=== PATIENT | female | born 1960 | race Caucasian/White ===

== ENCOUNTER 2017-04-08 17:38 | Emergency (ER) | payer OTHER ==
[~2017-04-08] VITALS: Ht 170.2 cm; Wt 109.0 kg
[~2017-04-08 17:38] MED LIST: DOXY100C PO; LISI-660 PO; MIRT30 PO; QUET25TA PO; SIMV-260 PO
[2017-04-08] MEDS ORDERED: ALPR0.255 PO (18:14)
[2017-04-08] MEDS ORDERED: TYL3LL PO (18:14)
[2017-04-08] MEDS ORDERED: VIST50 PO (18:14)
[2017-04-08] MEDS ORDERED: IBUP-1681 PO (18:14)
[2017-04-08 19:27] LABS: BASOPHILS % (AUTO) 0.4 % (0.0-2.0); EOSINOPHILS % (AUTO) 2.2 % (1.0-6.0); HEMATOCRIT 43.1 % (36-46); HEMOGLOBIN 13.9 g/dL (12.0-16.0); LYMPHOCYTES # (AUTO) 3.9 K/uL (1.0-4.8); LYMPHOCYTES % (AUTO) 41.1 % (22.0-44.0); MEAN CORPUSCULAR HEMOGLOBIN 28.5 pg (26.0-34.0); MEAN CORPUSCULAR HGB CONC 32.3 G/dL (31.0-37.0); MEAN CORPUSCULAR VOLUME 88 fL (80-100); MONOCYTES # (AUTO) 0.6 K/uL (0.1-1.0); MONOCYTES % (AUTO) 6.7 % (2.0-9.0); NEUTROPHILS # (AUTO) 4.7 K/uL (1.8-7.7); NEUTROPHILS % (AUTO) 49.6 % (40.0-70.0); PLATELET COUNT (AUTO) 357 K/uL (150-450); RED BLOOD CELL COUNT(AUTO) 4.89 MIL/uL (4.00-5.20); RED CELL DISTRIBUTION WIDTH 13.2 % (11.5-14.5); WHITE BLOOD COUNT (AUTO) 9.5 K/uL (4.5-11.0)
[2017-04-08 19:44] LABS: ANION GAP 7 mmol/L (8-16); CARBON DIOXIDE 28 mmol/L (22-29); CHLORIDE 105 mmol/L (98-107); CREATININE 1.11 mg/dL (0.60-1.30); GLOMERULAR FILTR. RATE CALC 51 mL/min (>60); POTASSIUM 4.5 mmol/L (3.5-5.1); SODIUM SERUM 140 mmol/L (136-145); UREA NITROGEN, BLOOD 18 mg/dL (7-18)
[2017-04-08 19:49] LABS: ALANINE AMINOTRANSFERASE 27 U/L (12-78); ALBUMIN 3.6 g/dL (3.4-5.0); ASPARTATE AMINOTRANSFERASE 18 U/L (15-37); BILIRUBIN,TOTAL 0.2 mg/dL (0.1-1.0); TOTAL PROTEIN, SERUM 7.3 g/dL (6.4-8.2)
[2017-04-08] MEDS ORDERED: IBUPROFEN 600 MG TABLET PO ONE (20:15)
[2017-04-08] MEDS ORDERED: ALPRAZolam 0.25 MG TABLET PO ONE (20:15)
[2017-04-08 21:57] VITALS: BP 117/72
== END 2017-04-08 21:58 | disposition home or self-care (01) ==
LOC: EMS 17:41
DX: R45.851 Suicidal ideations (principal); F41.9 Anxiety disorder, unspecified; M25.562 Pain in left knee; I10 Essential (primary) hypertension; F32.9 Major depressive disorder, single episode, unspecified; E78.00 Pure hypercholesterolemia, unspecified; E66.01 Morbid (severe) obesity due to excess calories; F11.10 Opioid abuse, uncomplicated; Z88.8 Allergy status to other drugs, medicaments and biological substances
CPT/HCPCS: 36415; 80053; 85025; 99284; 99406; G0480

== ENCOUNTER 2017-04-21 14:38 | Inpatient (IN) | payer MEDICAID, OTHER ==
[~2017-04-21] VITALS: Ht 170.2 cm; Wt 110.1 kg
[~2017-04-21 14:38] MED LIST changes: +ALPR0.255 PO; -DOXY100C PO; +IBUP-1681 PO; -LISI-660 PO; -MIRT30 PO; -QUET25TA PO; -SIMV-260 PO; +TYL3LL PO; +VIST50 PO
[2017-04-21] MEDS ORDERED: ASPIRIN 81 MG CHEWABLE TABLET PO ONE (15:00)
[2017-04-21] MEDS ORDERED: ACETAMINOPHEN 500 MG TABLET PO ONE (15:00)
[2017-04-21 15:16] LABS: BASOPHILS % (AUTO) 0.6 % (0.0-2.0); EOSINOPHILS % (AUTO) 1.4 % (1.0-6.0); HEMATOCRIT 38.4 % (36-46); HEMOGLOBIN 12.1 g/dL (12.0-16.0); LYMPHOCYTES # (AUTO) 3.4 K/uL (1.0-4.8); MEAN CORPUSCULAR HEMOGLOBIN 28.1 pg (26.0-34.0); MEAN CORPUSCULAR HGB CONC 31.6 G/dL (31.0-37.0); MEAN CORPUSCULAR VOLUME 89 fL (80-100); MONOCYTES # (AUTO) 0.6 K/uL (0.1-1.0); MONOCYTES % (AUTO) 7.1 % (2.0-9.0); NEUTROPHILS % (AUTO) 48.9 % (40.0-70.0); PLATELET COUNT (AUTO) 435 K/uL (150-450); RED BLOOD CELL COUNT(AUTO) 4.32 MIL/uL (4.00-5.20); WHITE BLOOD COUNT (AUTO) 8.1 K/uL (4.5-11.0)
[2017-04-21 15:22] LABS: ANION GAP 9 mmol/L (8-16); CALCIUM, TOTAL 8.7 mg/dL (8.8-10.5); CARBON DIOXIDE 26 mmol/L (22-29); CHLORIDE 102 mmol/L (98-107); CREATININE 0.81 mg/dL (0.60-1.30); GLOMERULAR FILTR. RATE CALC > 60 mL/min (>60); POTASSIUM 3.3 mmol/L (3.5-5.1); SODIUM SERUM 137 mmol/L (136-145); UREA NITROGEN, BLOOD 8 mg/dL (7-18)
[2017-04-21 15:43] LABS: ALANINE AMINOTRANSFERASE 29 U/L (12-78); ALBUMIN 3.3 g/dL (3.4-5.0); ASPARTATE AMINOTRANSFERASE 21 U/L (15-37); BILIRUBIN,TOTAL 0.4 mg/dL (0.1-1.0); CREATINE KINASE, TOTAL 65 U/L (26-192); TOTAL PROTEIN, SERUM 6.5 g/dL (6.4-8.2)
[2017-04-21 15:51] LABS: B-TYPE NATRIURETIC PEPTIDE 63 pg/mL (0-100)
[2017-04-21 16:20] LABS: GLUCOSE, URINE (UA) NEGATIVE (NEGATIVE); KETONES,URINE 40 mg/dL (NEGATIVE); LEUKOCYTE ESTERASE ,URINE NEGATIVE (NEGATIVE); OCCULT BLOOD,URINE NEGATIVE (NEGATIVE); PROTEIN,URINE POS 1+ (NEGATIVE)
[2017-04-21 16:21] LABS: ADD UA MICROSCOPIC YES
[2017-04-21 16:22] LABS: APPEARANCE,URINE SLIGHTLY CLOUDY (CLEAR)
[2017-04-21 16:33] LABS: CALCIUM OXALATE CRYSTALS,UR Few /LPF (None Seen); RBC,URINE 0-2 /HPF (0-2); SQUAMOUS EPITHELIAL CELL,UR Many /LPF (None Seen); WBC,URINE 0-2 /HPF (0-5)
[2017-04-21] MEDS ORDERED: LORazepam 1 MG TABLET PO ONE (17:15)
[2017-04-21 19:10] VITALS: BP 124/74
[2017-04-21] MEDS ORDERED: POTASSIUM CHLORIDE 20 MEQ ER TABLET PO ONE (19:45)
[2017-04-21] MEDS ORDERED: IBUPROFEN 600 MG TABLET PO PRN (19:45)
[2017-04-21] MEDS: QUEtiapine FUMARATE 25 MG TABLET PO SCH (20:21)
[2017-04-21] MEDS: MIRTAZAPINE 30 MG TABLET PO SCH (20:21)
[2017-04-21] MEDS: ZOLPIDEM TARTRATE 10 MG TABLET PO PRN (21:03)
[2017-04-22] MEDS ORDERED: PETROLATUM,WHITE 71 GM JELLY TP PRN (08:00)
[2017-04-22] MEDS ORDERED: BACITRACIN 28.4 GM OINTMENT TP PRN (08:00)
[2017-04-22] MEDS ORDERED: BENZOCAINE/MENTHOL LOZENGE MM PRN (08:00)
[2017-04-22] MEDS ORDERED: LOPERAMIDE HCL 2 MG CAPSULE PO PRN (08:00)
[2017-04-22] MEDS ORDERED: ONDANSETRON HCL 4 MG TABLET PO PRN (08:00)
[2017-04-22] MEDS ORDERED: MAGNESIUM HYDROXIDE SUSPENSION 30 ML UDCUP PO PRN (08:00)
[2017-04-22] MEDS ORDERED: MAG HYDROX/AL HYDROX/SIMETH ES 30 ML SUSPENSION UDCUP PO PRN (08:00)
[2017-04-22] MEDS ORDERED: CloNIDine HCL 0.1 MG TABLET PO PRN (08:00)
[2017-04-22 08:40] LABS: CHOL/HDL RATIO 4.8 (3.9-5.7); POTASSIUM 3.8 mmol/L (3.5-5.1)
[2017-04-22] MEDS: CHOLECALCIFEROL (VIT D3) 1,000 UNITS TABLET PO SCH (08:44)
[2017-04-22] MEDS ORDERED: FLUoxetine HCL 20 MG CAPSULE PO ONE (10:30)
[2017-04-22] MEDS ORDERED: ACETAMINOPHEN 325 MG TABLET PO PRN (10:45)
[2017-04-22] MEDS: FLUoxetine HCL 20 MG CAPSULE PO SCH (10:50)
[2017-04-22 16:24] VITALS: BP 142/72
[2017-04-22] MEDS: MIRTAZAPINE 30 MG TABLET PO SCH (20:19)
[2017-04-22] MEDS: QUEtiapine FUMARATE 25 MG TABLET PO SCH (20:19)
[2017-04-22] MEDS: ZOLPIDEM TARTRATE 10 MG TABLET PO PRN (21:02)
[2017-04-23 01:47] VITALS: BP 137/71
[2017-04-23] MEDS: CHOLECALCIFEROL (VIT D3) 1,000 UNITS TABLET PO SCH (08:36)
[2017-04-23] MEDS: FLUoxetine HCL 20 MG CAPSULE PO SCH (08:36)
[2017-04-23 09:00] VITALS: BP 108/61
[2017-04-23 16:00] VITALS: BP 120/73
[2017-04-23] MEDS: QUEtiapine FUMARATE 25 MG TABLET PO SCH (20:47)
[2017-04-23] MEDS: MIRTAZAPINE 30 MG TABLET PO SCH (20:47)
[2017-04-23] MEDS: ZOLPIDEM TARTRATE 10 MG TABLET PO PRN (21:28)
[2017-04-24] MEDS: FLUoxetine HCL 20 MG CAPSULE PO SCH (08:38)
[2017-04-24] MEDS: CHOLECALCIFEROL (VIT D3) 1,000 UNITS TABLET PO SCH (08:38)
[2017-04-24 09:04] VITALS: BP 123/60
[2017-04-24 16:00] VITALS: BP 128/74
[2017-04-24] MEDS: ACETAMINOPHEN 325 MG TABLET PO PRN (17:00)
[2017-04-24] MEDS: MIRTAZAPINE 30 MG TABLET PO SCH (20:48)
[2017-04-24] MEDS: QUEtiapine FUMARATE 25 MG TABLET PO SCH (20:49)
[2017-04-24] MEDS: ZOLPIDEM TARTRATE 10 MG TABLET PO PRN (21:16)
[2017-04-24] MEDS: LORazepam 2 MG TABLET PO PRN (21:43)
[2017-04-25] MEDS: CHOLECALCIFEROL (VIT D3) 1,000 UNITS TABLET PO SCH (08:51)
[2017-04-25] MEDS: FLUoxetine HCL 20 MG CAPSULE PO SCH (08:51)
[2017-04-25] MEDS: IBUPROFEN 600 MG TABLET PO PRN (10:01)
[2017-04-25 16:00] VITALS: BP 117/71
[2017-04-25] MEDS: QUEtiapine FUMARATE 25 MG TABLET PO SCH (20:34)
[2017-04-25] MEDS: MIRTAZAPINE 30 MG TABLET PO SCH (20:34)
[2017-04-26] MEDS: CHOLECALCIFEROL (VIT D3) 1,000 UNITS TABLET PO SCH (08:23)
[2017-04-26] MEDS: FLUoxetine HCL 20 MG CAPSULE PO SCH (08:23)
[2017-04-26 08:34] VITALS: BP 104/60
[2017-04-26] MEDS: IBUPROFEN 600 MG TABLET PO PRN ×2 (08:36→20:06)
[2017-04-26 16:28] VITALS: BP 123/72
[2017-04-26] MEDS: QUEtiapine FUMARATE 25 MG TABLET PO SCH (20:05)
[2017-04-26] MEDS: ZOLPIDEM TARTRATE 10 MG TABLET PO PRN (20:06)
[2017-04-26] MEDS: MIRTAZAPINE 30 MG TABLET PO SCH (20:06)
[2017-04-26] MEDS: LORazepam 2 MG TABLET PO PRN (22:09)
[2017-04-27 00:20] VITALS: BP 126/78
[2017-04-27] MEDS: HALOPERIDOL 5 MG TABLET PO PRN ×3 (00:21→21:35)
[2017-04-27] MEDS: CHOLECALCIFEROL (VIT D3) 1,000 UNITS TABLET PO SCH (08:09)
[2017-04-27] MEDS: FLUoxetine HCL 20 MG CAPSULE PO SCH (08:09)
[2017-04-27 08:21] VITALS: BP 115/63
[2017-04-27 16:33] VITALS: BP 138/81
[2017-04-27] MEDS: LORazepam 2 MG TABLET PO PRN ×2 (17:06→21:35)
[2017-04-27] MEDS: MIRTAZAPINE 30 MG TABLET PO SCH (20:35)
[2017-04-27] MEDS: QUEtiapine FUMARATE 25 MG TABLET PO SCH (20:35)
[2017-04-27] MEDS: ZOLPIDEM TARTRATE 10 MG TABLET PO PRN (20:54)
[2017-04-28 08:02] VITALS: BP 104/74
[2017-04-28] MEDS: FLUoxetine HCL 20 MG CAPSULE PO SCH (08:47)
[2017-04-28] MEDS: CHOLECALCIFEROL (VIT D3) 1,000 UNITS TABLET PO SCH (08:47)
[2017-04-28] MEDS: LORazepam 2 MG TABLET PO PRN (08:51)
[2017-04-28 16:47] VITALS: BP 116/77
[2017-04-28] MEDS: IBUPROFEN 600 MG TABLET PO PRN (20:05)
[2017-04-28] MEDS: QUEtiapine FUMARATE 25 MG TABLET PO SCH (20:05)
[2017-04-28] MEDS: MIRTAZAPINE 30 MG TABLET PO SCH (20:05)
[2017-04-29 07:15] VITALS: BP 110/76
[2017-04-29] MEDS: FLUoxetine HCL 20 MG CAPSULE PO SCH (08:26)
[2017-04-29] MEDS: CHOLECALCIFEROL (VIT D3) 1,000 UNITS TABLET PO SCH (08:27)
[2017-04-29 08:55] VITALS: BP 116/65
[2017-04-29] MEDS: LORazepam 2 MG TABLET PO PRN ×2 (09:12→16:53)
[2017-04-29] MEDS: HALOPERIDOL 5 MG TABLET PO PRN ×3 (09:12→20:58)
[2017-04-29 16:17] VITALS: BP 132/96
[2017-04-29] MEDS: ZOLPIDEM TARTRATE 10 MG TABLET PO PRN (20:41)
[2017-04-29] MEDS: MIRTAZAPINE 30 MG TABLET PO SCH (20:41)
[2017-04-29] MEDS: IBUPROFEN 600 MG TABLET PO PRN (20:42)
[2017-04-29] MEDS: QUEtiapine FUMARATE 25 MG TABLET PO SCH (20:42)
[2017-04-30 06:15] VITALS: BP 125/76
[2017-04-30 08:24] VITALS: BP 111/62
[2017-04-30] MEDS: FLUoxetine HCL 20 MG CAPSULE PO SCH (10:09)
[2017-04-30] MEDS: CHOLECALCIFEROL (VIT D3) 1,000 UNITS TABLET PO SCH (10:09)
[2017-04-30 16:00] VITALS: BP 110/80
[2017-04-30] MEDS: IBUPROFEN 600 MG TABLET PO PRN (17:53)
[2017-04-30] MEDS: MIRTAZAPINE 30 MG TABLET PO SCH (20:36)
[2017-04-30] MEDS: QUEtiapine FUMARATE 25 MG TABLET PO SCH (20:36)
[2017-04-30] MEDS: ZOLPIDEM TARTRATE 10 MG TABLET PO PRN (21:07)
[2017-04-30] MEDS: LORazepam 2 MG TABLET PO PRN (21:40)
[2017-04-30] MEDS: HALOPERIDOL 5 MG TABLET PO PRN (22:17)
[2017-05-01 06:36] VITALS: BP 105/64
[2017-05-01] MEDS: FLUoxetine HCL 20 MG CAPSULE PO SCH (08:34)
[2017-05-01] MEDS: CHOLECALCIFEROL (VIT D3) 1,000 UNITS TABLET PO SCH (08:34)
[2017-05-01 09:01] VITALS: BP 118/82
[2017-05-01 12:48] VITALS: BP 116/74
[2017-05-01] MEDS: IBUPROFEN 600 MG TABLET PO PRN (12:48)
[2017-05-01] MEDS: LORazepam 2 MG TABLET PO PRN ×2 (12:48→20:40)
[2017-05-01 16:00] VITALS: BP 114/67
[2017-05-01] MEDS: MIRTAZAPINE 30 MG TABLET PO SCH (20:40)
[2017-05-01] MEDS: QUEtiapine FUMARATE 25 MG TABLET PO SCH (20:40)
[2017-05-01] MEDS: HALOPERIDOL 5 MG TABLET PO PRN (20:40)
[2017-05-01] MEDS: ZOLPIDEM TARTRATE 10 MG TABLET PO PRN (21:32)
[2017-05-02 06:54] VITALS: BP 122/68
[2017-05-02 08:17] VITALS: BP 111/64
[2017-05-02] MEDS: FLUoxetine HCL 20 MG CAPSULE PO SCH (08:33)
[2017-05-02] MEDS: CHOLECALCIFEROL (VIT D3) 1,000 UNITS TABLET PO SCH (08:34)
[2017-05-02 16:21] VITALS: BP 112/62
[2017-05-02] MEDS: ACETAMINOPHEN 325 MG TABLET PO PRN (18:11)
[2017-05-02] MEDS: MIRTAZAPINE 30 MG TABLET PO SCH (20:58)
[2017-05-02] MEDS: QUEtiapine FUMARATE 25 MG TABLET PO SCH (20:58)
[2017-05-02] MEDS: HALOPERIDOL 5 MG TABLET PO PRN (20:58)
[2017-05-02] MEDS: ZOLPIDEM TARTRATE 10 MG TABLET PO PRN (21:00)
[2017-05-03 06:13] VITALS: BP 116/70
[2017-05-03 08:21] VITALS: BP 101/58
[2017-05-03] MEDS: CHOLECALCIFEROL (VIT D3) 1,000 UNITS TABLET PO SCH (08:32)
[2017-05-03] MEDS: FLUoxetine HCL 20 MG CAPSULE PO SCH (08:32)
[2017-05-03 16:17] VITALS: BP 112/63
[2017-05-03] MEDS: MIRTAZAPINE 30 MG TABLET PO SCH (21:09)
[2017-05-03] MEDS: QUEtiapine FUMARATE 25 MG TABLET PO SCH (21:09)
[2017-05-03] MEDS: ZOLPIDEM TARTRATE 10 MG TABLET PO PRN (21:09)
[2017-05-03] MEDS: IBUPROFEN 600 MG TABLET PO PRN (21:22)
[2017-05-04 00:01] VITALS: BP 117/74
[2017-05-04] MEDS: LORazepam 2 MG TABLET PO PRN ×4 (00:01→21:23)
[2017-05-04 08:43] VITALS: BP 107/54
[2017-05-04] MEDS: FLUoxetine HCL 20 MG CAPSULE PO SCH (09:03)
[2017-05-04] MEDS: CHOLECALCIFEROL (VIT D3) 1,000 UNITS TABLET PO SCH (09:03)
[2017-05-04] MEDS ORDERED: QUET25TA PO (10:23)
[2017-05-04] MEDS ORDERED: FLUO-191 PO (10:23)
[2017-05-04] MEDS ORDERED: VITAD1000 PO (10:23)
[2017-05-04] MEDS ORDERED: MIRT30 PO (10:23)
[2017-05-04 16:05] VITALS: BP 127/79
[2017-05-04] MEDS: HALOPERIDOL 5 MG TABLET PO PRN (21:00)
[2017-05-04] MEDS ORDERED: QUEtiapine FUMARATE 100 MG TABLET PO SCH (21:00)
[2017-05-04] MEDS: ZOLPIDEM TARTRATE 10 MG TABLET PO PRN (21:00)
[2017-05-04] MEDS ORDERED: MIRTAZAPINE 30 MG TABLET PO SCH (21:00)
[2017-05-04] MEDS ORDERED: DiphenhydrAMINE HCL 25 MG CAPSULE PO SCH (22:00)
[2017-05-05 06:24] VITALS: BP 127/73
[2017-05-05] MEDS: CHOLECALCIFEROL (VIT D3) 1,000 UNITS TABLET PO SCH (08:38)
[2017-05-05 08:56] VITALS: BP 113/76
[2017-05-05] MEDS ORDERED: FLUoxetine HCL 20 MG CAPSULE PO SCH (09:00)
[2017-05-05] MEDS: LORazepam 2 MG TABLET PO PRN (11:13)
== END 2017-05-05 17:45 | disposition home or self-care (01) | DRG 751 ==
LOC: EMS 14:39 → B3A 17:49 → B2S 05-03 11:48
DX: F33.2 Major depressive disorder, recurrent severe without psychotic features (principal); R45.851 Suicidal ideations; E55.9 Vitamin D deficiency, unspecified; I10 Essential (primary) hypertension; E78.5 Hyperlipidemia, unspecified; F12.90 Cannabis use, unspecified, uncomplicated; K59.00 Constipation, unspecified; E87.6 Hypokalemia; G47.00 Insomnia, unspecified; E78.00 Pure hypercholesterolemia, unspecified; M25.561 Pain in right knee; E66.01 Morbid (severe) obesity due to excess calories; Z79.899 Other long term (current) drug therapy; Z90.81 Acquired absence of spleen; Z56.0 Unemployment, unspecified; Z71.51 Drug abuse counseling and surveillance of drug abuser; Z88.8 Allergy status to other drugs, medicaments and biological substances; Z68.38 Body mass index [BMI] 38.0-38.9, adult; Z87.01 Personal history of pneumonia (recurrent); Z91.5 Personal history of self-harm; Z79.82 Long term (current) use of aspirin
CPT/HCPCS: 72040; 84132; 93005; 99285

== ENCOUNTER 2017-08-23 15:29 | Inpatient (IN) | payer MEDICAID, OTHER ==
[~2017-08-23] VITALS: Ht 170.2 cm; Wt 110.0 kg
[~2017-08-23 15:29] MED LIST changes: -ALPR0.255 PO; +FLUO-191 PO; -IBUP-1681 PO; +MIRT30 PO; +QUET25TA PO; -TYL3LL PO; -VIST50 PO; +VITAD1000 PO
[2017-08-23 16:11] LABS: BASOPHILS % (AUTO) 0.8 % (0.0-2.0); EOSINOPHILS % (AUTO) 1.9 % (1.0-6.0); HEMATOCRIT 43.9 % (36-46); HEMOGLOBIN 14.8 g/dL (12.0-16.0); LYMPHOCYTES # (AUTO) 2.8 K/uL (1.0-4.8); LYMPHOCYTES % (AUTO) 26.8 % (22.0-44.0); MEAN CORPUSCULAR HEMOGLOBIN 30.4 pg (26.0-34.0); MEAN CORPUSCULAR HGB CONC 33.9 G/dL (31.0-37.0); MEAN CORPUSCULAR VOLUME 90 fL (80-100); MONOCYTES # (AUTO) 0.6 K/uL (0.1-1.0); MONOCYTES % (AUTO) 6.2 % (2.0-9.0); NEUTROPHILS # (AUTO) 6.7 K/uL (1.8-7.7); NEUTROPHILS % (AUTO) 64.3 % (40.0-70.0); PLATELET COUNT (AUTO) 397 K/uL (150-450); RED BLOOD CELL COUNT(AUTO) 4.88 MIL/uL (4.00-5.20); RED CELL DISTRIBUTION WIDTH 14.2 % (11.5-14.5); WHITE BLOOD COUNT (AUTO) 10.5 K/uL (4.5-11.0)
[2017-08-23 17:15] LABS: ANION GAP 9 mmol/L (8-16); CALCIUM, TOTAL 9.3 mg/dL (8.8-10.5); CARBON DIOXIDE 26 mmol/L (22-29); CHLORIDE 101 mmol/L (98-107); CREATININE 0.84 mg/dL (0.60-1.30); GLOMERULAR FILTR. RATE CALC > 60 mL/min (>60); POTASSIUM 4.4 mmol/L (3.5-5.1); SODIUM SERUM 136 mmol/L (136-145); UREA NITROGEN, BLOOD 10 mg/dL (7-18)
[2017-08-23 17:21] LABS: ALANINE AMINOTRANSFERASE 28 U/L (12-78); ALBUMIN 3.4 g/dL (3.4-5.0); ASPARTATE AMINOTRANSFERASE 18 U/L (15-37); BILIRUBIN,TOTAL 0.5 mg/dL (0.1-1.0); TOTAL PROTEIN, SERUM 7.5 g/dL (6.4-8.2)
[2017-08-23] MEDS ORDERED: ONDANSETRON HCL 4 MG/2 ML VIAL IM ONE (17:30)
[2017-08-23] MEDS ORDERED: MORPHINE SULFATE 4 MG/ML SYRINGE IM ONE (17:30)
[2017-08-23] MEDS ORDERED: LORazepam 2 MG TABLET PO ONE (20:00)
[2017-08-23 21:01] LABS: CHOL/HDL RATIO 4.9 (3.9-5.7)
[2017-08-23 21:40] VITALS: BP 123/76
[2017-08-23] MEDS ORDERED: ACETAMINOPHEN 325 MG TABLET PO PRN (21:45)
[2017-08-23] MEDS: ZOLPIDEM TARTRATE 10 MG TABLET PO PRN (21:57)
[2017-08-23] MEDS ORDERED: INFLUENZA VIRUS VACCINE QVS 2017-18 (3YR+)/PF 60 MCG/0.5 ML SYRINGE IM ONE (22:00)
[2017-08-24] MEDS: HALOPERIDOL 5 MG TABLET PO PRN ×2 (00:11→18:17)
[2017-08-24] MEDS: LORazepam 2 MG TABLET PO PRN ×3 (00:11→18:17)
[2017-08-24 00:42] VITALS: BP 131/75
[2017-08-24] MEDS ORDERED: MAGNESIUM HYDROXIDE SUSPENSION 30 ML UDCUP PO PRN (07:30)
[2017-08-24] MEDS ORDERED: BENZOCAINE/MENTHOL LOZENGE [8 LOZENGES/PACKET] MM PRN (07:30)
[2017-08-24] MEDS ORDERED: MAG HYDROX/AL HYDROX/SIMETH ES 30 ML SUSPENSION UDCUP PO PRN (07:30)
[2017-08-24] MEDS ORDERED: LOPERAMIDE HCL 2 MG CAPSULE PO PRN (07:30)
[2017-08-24] MEDS ORDERED: ONDANSETRON HCL 4 MG TABLET PO PRN (07:30)
[2017-08-24] MEDS ORDERED: CloNIDine HCL 0.1 MG TABLET PO PRN (07:30)
[2017-08-24] MEDS ORDERED: PETROLATUM,WHITE 71 GM JELLY TP PRN (07:30)
[2017-08-24] MEDS ORDERED: BACITRACIN 28.4 GM OINTMENT TP PRN (07:30)
[2017-08-24 08:01] VITALS: BP 127/77
[2017-08-24] MEDS: NICOTINE 21 MG/24 HOUR PATCH TD SCH (08:23)
[2017-08-24] MEDS: ACETAMINOPHEN 325 MG TABLET PO PRN ×2 (08:25→18:19)
[2017-08-24] MEDS ORDERED: TraZODone HCL 50 MG TABLET PO PRN (11:30)
[2017-08-24] MEDS: SERTRALINE HCL 50 MG TABLET PO SCH (12:55)
[2017-08-24 17:16] VITALS: BP 119/65
[2017-08-24 18:20] VITALS: BP 122/72
[2017-08-24] MEDS: ZOLPIDEM TARTRATE 10 MG TABLET PO PRN (20:28)
[2017-08-24] MEDS: SIMVASTATIN 10 MG TABLET PO SCH (20:28)
[2017-08-25 08:17] VITALS: BP 126/75
[2017-08-25] MEDS: HALOPERIDOL 5 MG TABLET PO PRN ×2 (09:07→21:08)
[2017-08-25] MEDS: CHOLECALCIFEROL (VIT D3) 1,000 UNITS TABLET PO SCH (09:07)
[2017-08-25] MEDS: SERTRALINE HCL 50 MG TABLET PO SCH (09:07)
[2017-08-25] MEDS: NICOTINE 21 MG/24 HOUR PATCH TD SCH (09:09)
[2017-08-25 17:03] VITALS: BP 108/65
[2017-08-25] MEDS: ZOLPIDEM TARTRATE 10 MG TABLET PO PRN (21:08)
[2017-08-25] MEDS: SIMVASTATIN 10 MG TABLET PO SCH (21:16)
[2017-08-26 06:10] VITALS: BP 120/74
[2017-08-26] MEDS: ACETAMINOPHEN 325 MG TABLET PO PRN (06:13)
[2017-08-26 09:22] VITALS: BP 125/83
[2017-08-26] MEDS: SERTRALINE HCL 50 MG TABLET PO SCH (09:22)
[2017-08-26] MEDS: CHOLECALCIFEROL (VIT D3) 1,000 UNITS TABLET PO SCH (09:22)
[2017-08-26] MEDS: NICOTINE 21 MG/24 HOUR PATCH TD SCH (09:27)
[2017-08-26] MEDS: HALOPERIDOL 5 MG TABLET PO PRN (12:54)
[2017-08-26] MEDS ORDERED: SERT50TA12 PO (15:08)
[2017-08-26] MEDS ORDERED: VITAD1000 PO (15:11)
[2017-08-26] MEDS ORDERED: SIMV-259 PO (15:12)
== END 2017-08-26 16:00 | disposition home or self-care (01) | DRG 751 ==
LOC: EMS 15:31 → 3EI 20:35
PROC: 3E0234Z Introduction of Serum, Toxoid and Vaccine into Muscle, Percutaneous Approach (ICD-10-PCS; principal; 2017-08-25)
DX: F33.2 Major depressive disorder, recurrent severe without psychotic features (principal); R45.851 Suicidal ideations; E66.01 Morbid (severe) obesity due to excess calories; I10 Essential (primary) hypertension; E55.9 Vitamin D deficiency, unspecified; E78.00 Pure hypercholesterolemia, unspecified; E78.5 Hyperlipidemia, unspecified; F12.90 Cannabis use, unspecified, uncomplicated; G47.00 Insomnia, unspecified; F41.9 Anxiety disorder, unspecified; M25.512 Pain in left shoulder; K59.00 Constipation, unspecified; Z79.899 Other long term (current) drug therapy; Z90.81 Acquired absence of spleen; Z87.01 Personal history of pneumonia (recurrent); Z88.6 Allergy status to analgesic agent; Z88.8 Allergy status to other drugs, medicaments and biological substances; Z68.38 Body mass index [BMI] 38.0-38.9, adult; Z23 Encounter for immunization
CPT/HCPCS: 90471; 96372; 99285; G0480; J2270; J2405

== ENCOUNTER 2017-10-31 15:03 | Emergency (ER) | payer MEDICAID, OTHER ==
[~2017-10-31] VITALS: Ht 170.2 cm; Wt 90.9 kg
[~2017-10-31 15:03] MED LIST changes: -FLUO-191 PO; -MIRT30 PO; -QUET25TA PO; +SERT50TA12 PO; +SIMV-259 PO
[2017-10-31] MEDS ORDERED: ALPR0.5T8 PO (15:19)
[2017-10-31 15:22] VITALS: BP 135/76
[2017-10-31] MEDS: ACETAMINOPHEN 500 MG TABLET PO ONE ×2 (16:05→16:06)
[2017-10-31 16:33] LABS: BASOPHILS # (AUTO) 0.07 K/uL (0.00-0.20); BASOPHILS % (AUTO) 0.6 % (0.0-2.0); EOSINOPHILS # (AUTO) 0.54 K/uL (0.00-0.70); EOSINOPHILS % (AUTO) 5.09 % (1.0-6.0); HEMATOCRIT 44.1 % (36-46); HEMOGLOBIN 14.6 g/dL (12.0-16.0); LYMPHOCYTES # (AUTO) 3.1 K/uL (1.0-4.8); LYMPHOCYTES % (AUTO) 29.3 % (22.0-44.0); MEAN CORPUSCULAR HEMOGLOBIN 29.7 pg (26.0-34.0); MEAN CORPUSCULAR HGB CONC 33.1 G/dL (31.0-37.0); MEAN CORPUSCULAR VOLUME 90 fL (80-100); MONOCYTES # (AUTO) 1.1 K/uL (0.1-1.0); MONOCYTES % (AUTO) 10.2 % (2.0-9.0); NEUTROPHILS # (AUTO) 5.8 K/uL (1.8-7.7); NEUTROPHILS % (AUTO) 54.8 % (40.0-70.0); PLATELET COUNT (AUTO) 402 K/uL (150-450); RED BLOOD CELL COUNT(AUTO) 4.91 MIL/uL (4.00-5.20); RED CELL DISTRIBUTION WIDTH 15.3 % (11.5-14.5); WHITE BLOOD COUNT (AUTO) 10.7 K/uL (4.5-11.0)
[2017-10-31 16:43] LABS: ANION GAP 11 mmol/L (8-16); CARBON DIOXIDE 27 mmol/L (22-29); CHLORIDE 104 mmol/L (98-107); CREATININE 0.79 mg/dL (0.60-1.30); GLOMERULAR FILTR. RATE CALC > 60 mL/min (>60); SODIUM SERUM 142 mmol/L (136-145); UREA NITROGEN, BLOOD 12 mg/dL (7-18)
[2017-10-31 16:57] LABS: ALANINE AMINOTRANSFERASE 32 U/L (12-78); ALBUMIN 3.2 g/dL (3.4-5.0); ASPARTATE AMINOTRANSFERASE 20 U/L (15-37); BILIRUBIN,TOTAL 0.4 mg/dL (0.1-1.0)
== END 2017-10-31 17:55 | disposition home or self-care (01) ==
LOC: EMS 15:06
DX: S46.912A Strain of unspecified muscle, fascia and tendon at shoulder and upper arm level, left arm, initial encounter (principal); F32.9 Major depressive disorder, single episode, unspecified; I10 Essential (primary) hypertension; E78.00 Pure hypercholesterolemia, unspecified; Z88.6 Allergy status to analgesic agent; Z88.8 Allergy status to other drugs, medicaments and biological substances; W18.39XA Other fall on same level, initial encounter; Y93.89 Activity, other specified; Y92.89 Other specified places as the place of occurrence of the external cause; Y99.8 Other external cause status
CPT/HCPCS: 36415; 73030; 80053; 85025; 99285; G0480

== ENCOUNTER 2017-11-27 18:58 | Emergency (ER) | payer OTHER ==
[~2017-11-27] VITALS: Ht 170.2 cm; Wt 111.4 kg
[~2017-11-27 18:58] MED LIST changes: +ALPR0.5T8 PO
[2017-11-27 19:33] LABS: BASOPHILS # (AUTO) 0.44 K/uL (0.00-0.20); BASOPHILS % (AUTO) 4.4 % (0.0-2.0); EOSINOPHILS # (AUTO) 0.36 K/uL (0.00-0.70); EOSINOPHILS % (AUTO) 3.63 % (1.0-6.0); HEMATOCRIT 42.9 % (36-46); HEMOGLOBIN 14.4 g/dL (12.0-16.0); LYMPHOCYTES # (AUTO) 4.5 K/uL (1.0-4.8); LYMPHOCYTES % (AUTO) 45.6 % (22.0-44.0); MEAN CORPUSCULAR HEMOGLOBIN 30.4 pg (26.0-34.0); MEAN CORPUSCULAR HGB CONC 33.5 G/dL (31.0-37.0); MEAN CORPUSCULAR VOLUME 91 fL (80-100); MONOCYTES # (AUTO) 0.6 K/uL (0.1-1.0); MONOCYTES % (AUTO) 5.9 % (2.0-9.0); NEUTROPHILS % (AUTO) 40.5 % (40.0-70.0); PLATELET COUNT (AUTO) 408 K/uL (150-450); RED BLOOD CELL COUNT(AUTO) 4.72 MIL/uL (4.00-5.20); RED CELL DISTRIBUTION WIDTH 15.3 % (11.5-14.5)
[2017-11-27 19:41] LABS: CALCIUM, TOTAL 8.8 mg/dL (8.8-10.5); CREATININE 1.05 mg/dL (0.60-1.30); POTASSIUM 3.8 mmol/L (3.5-5.1)
[2017-11-27 19:47] LABS: ALBUMIN 3.2 g/dL (3.4-5.0); BILIRUBIN,TOTAL 0.2 mg/dL (0.1-1.0); TOTAL PROTEIN, SERUM 7.1 g/dL (6.4-8.2)
[2017-11-27] MEDS ORDERED: ONDANSETRON HCL 4 MG/2 ML VIAL IVP ONE (23:30)
[2017-11-27] MEDS ORDERED: SODIUM CHLORIDE 0.9% 1,000 ML IV ONE (23:30)
[2017-11-27] MEDS ORDERED: MORPHINE SULFATE 4 MG/ML SYRINGE IVP ONE (23:30)
[2017-11-27] MEDS ORDERED: PANTOPRAZOLE SODIUM 40 MG/VIAL IVP ONE (23:45)
[2017-11-28 00:41] LABS: APPEARANCE,URINE CLOUDY (CLEAR); BILIRUBIN,URINE NEGATIVE (NEGATIVE); GLUCOSE, URINE (UA) NEGATIVE (NEGATIVE); KETONES,URINE NEGATIVE (NEGATIVE); LEUKOCYTE ESTERASE ,URINE NEGATIVE (NEGATIVE); NITRATE,URINE POSITIVE (NEGATIVE); OCCULT BLOOD,URINE TRACE (NEGATIVE); PROTEIN,URINE NEGATIVE (NEGATIVE); UROBILINOGEN,URINE 0.2 mg/dL (<=1.0)
[2017-11-28 00:59] LABS: BACTERIA,URINE Many /HPF (None Seen); SQUAMOUS EPITHELIAL CELL,UR Rare /LPF (None Seen); WBC,URINE 0-2 /HPF (0-5)
[2017-11-28] MEDS ORDERED: CIPROFLOXACIN HCL 250 MG TABLET PO ONE (01:00)
[2017-11-28 01:39] VITALS: BP 132/75
== END 2017-11-28 01:47 | disposition home or self-care (01) ==
LOC: EMS 19:00
DX: E86.0 Dehydration (principal); N39.0 Urinary tract infection, site not specified; B34.9 Viral infection, unspecified; I10 Essential (primary) hypertension; J18.9 Pneumonia, unspecified organism; F32.9 Major depressive disorder, single episode, unspecified; E78.00 Pure hypercholesterolemia, unspecified; Z71.6 Tobacco abuse counseling; Z90.49 Acquired absence of other specified parts of digestive tract; Z88.6 Allergy status to analgesic agent; Z79.899 Other long term (current) drug therapy
CPT/HCPCS: 36415; 80053; 81001; 83690; 84484; 85025; 87077; 87086; 87186; 96374; 96375; 99284; 99406; C9113; J2270; J2405; J7030

== ENCOUNTER 2018-01-05 21:27 | Emergency (ER) | payer OTHER ==
[~2018-01-05] VITALS: Ht 170.2 cm; Wt 111.3 kg
[2018-01-05 23:15] LABS: APPEARANCE,URINE CLEAR (CLEAR); BILIRUBIN,URINE NEGATIVE (NEGATIVE); GLUCOSE, URINE (UA) NEGATIVE (NEGATIVE); KETONES,URINE NEGATIVE (NEGATIVE); LEUKOCYTE ESTERASE ,URINE NEGATIVE (NEGATIVE); NITRATE,URINE NEGATIVE (NEGATIVE); OCCULT BLOOD,URINE NEGATIVE (NEGATIVE); PH,URINE 6.5 (5.0-8.0); PROTEIN,URINE NEGATIVE (NEGATIVE); UROBILINOGEN,URINE 0.2 mg/dL (<=1.0)
[2018-01-05 23:43] LABS: BASOPHILS % (AUTO) 0.9 % (0.0-2.0); EOSINOPHILS % (AUTO) 7.8 % (1.0-6.0); HEMATOCRIT 40.2 % (36-46); HEMOGLOBIN 13.5 g/dL (12.0-16.0); LYMPHOCYTES # (AUTO) 4.8 K/uL (1.0-4.8); LYMPHOCYTES % (AUTO) 41.8 % (22.0-44.0); MEAN CORPUSCULAR HEMOGLOBIN 29.6 pg (26.0-34.0); MEAN CORPUSCULAR HGB CONC 33.7 G/dL (31.0-37.0); MEAN CORPUSCULAR VOLUME 88 fL (80-100); MONOCYTES # (AUTO) 0.9 K/uL (0.1-1.0); MONOCYTES % (AUTO) 8.2 % (2.0-9.0); NEUTROPHILS # (AUTO) 4.7 K/uL (1.8-7.7); NEUTROPHILS % (AUTO) 41.3 % (40.0-70.0); PLATELET COUNT (AUTO) 391 K/uL (150-450); RED BLOOD CELL COUNT(AUTO) 4.57 MIL/uL (4.00-5.20); RED CELL DISTRIBUTION WIDTH 14.3 % (11.5-14.5)
[2018-01-05 23:56] LABS: ANION GAP 5 mmol/L (8-16); CALCIUM, TOTAL 8.6 mg/dL (8.8-10.5); CARBON DIOXIDE 27 mmol/L (22-29); CHLORIDE 106 mmol/L (98-107); CREATININE 0.77 mg/dL (0.60-1.30); GLOMERULAR FILTR. RATE CALC > 60 mL/min (>60); GLUCOSE,RANDOM 93 mg/dL (70-110); POTASSIUM 3.8 mmol/L (3.5-5.1); SODIUM SERUM 138 mmol/L (136-145); UREA NITROGEN, BLOOD 12 mg/dL (7-18)
[2018-01-06 00:01] LABS: ALANINE AMINOTRANSFERASE 21 U/L (12-78); ALBUMIN 2.9 g/dL (3.4-5.0); ALKALINE PHOSPHATASE 94 U/L (46-116); ASPARTATE AMINOTRANSFERASE 16 U/L (15-37); BILIRUBIN,TOTAL 0.2 mg/dL (0.1-1.0); LIPASE 188 U/L (73-393); TOTAL PROTEIN, SERUM 6.5 g/dL (6.4-8.2)
[2018-01-06 00:11] VITALS: BP 112/74
== END 2018-01-06 00:24 | disposition home or self-care (01) ==
LOC: EMS 21:30
DX: K59.00 Constipation, unspecified (principal); E78.00 Pure hypercholesterolemia, unspecified; I10 Essential (primary) hypertension; E66.01 Morbid (severe) obesity due to excess calories; Z88.6 Allergy status to analgesic agent; Z88.8 Allergy status to other drugs, medicaments and biological substances; Z68.38 Body mass index [BMI] 38.0-38.9, adult
CPT/HCPCS: 74022; 99285

== ENCOUNTER 2018-05-08 12:41 | Emergency (ER) | payer OTHER ==
[~2018-05-08] VITALS: Ht 165.1 cm; Wt 111.4 kg
[2018-05-08 13:27] LABS: BASOPHILS % (AUTO) 0.3 % (0.0-2.0); EOSINOPHILS % (AUTO) 3.3 % (1.0-6.0); HEMATOCRIT 44.6 % (36-46); HEMOGLOBIN 15.6 g/dL (12.0-16.0); LYMPHOCYTES # (AUTO) 3.4 K/uL (1.0-4.8); LYMPHOCYTES % (AUTO) 45.3 % (22.0-44.0); MEAN CORPUSCULAR HEMOGLOBIN 31.5 pg (26.0-34.0); MEAN CORPUSCULAR HGB CONC 34.8 G/dL (31.0-37.0); MEAN CORPUSCULAR VOLUME 90 fL (80-100); MONOCYTES # (AUTO) 0.6 K/uL (0.1-1.0); MONOCYTES % (AUTO) 7.4 % (2.0-9.0); NEUTROPHILS # (AUTO) 3.3 K/uL (1.8-7.7); NEUTROPHILS % (AUTO) 43.7 % (40.0-70.0); PLATELET COUNT (AUTO) 419 K/uL (150-450); RED BLOOD CELL COUNT(AUTO) 4.94 MIL/uL (4.00-5.20); RED CELL DISTRIBUTION WIDTH 15.5 % (11.5-14.5)
[2018-05-08 13:37] LABS: ANION GAP 7 mmol/L (8-16); CALCIUM, TOTAL 8.5 mg/dL (8.8-10.5); CARBON DIOXIDE 27 mmol/L (22-29); CHLORIDE 104 mmol/L (98-107); CREATININE 0.73 mg/dL (0.60-1.30); GLOMERULAR FILTR. RATE CALC > 60 mL/min (>60); GLUCOSE,RANDOM 85 mg/dL (70-110); SODIUM SERUM 138 mmol/L (136-145); UREA NITROGEN, BLOOD 8 mg/dL (7-18)
[2018-05-08 13:44] LABS: ALANINE AMINOTRANSFERASE 36 U/L (12-78); ALBUMIN 3.2 g/dL (3.4-5.0); ALKALINE PHOSPHATASE 123 U/L (46-116); ASPARTATE AMINOTRANSFERASE 20 U/L (15-37); BILIRUBIN,TOTAL 0.2 mg/dL (0.1-1.0); TOTAL PROTEIN, SERUM 7.2 g/dL (6.4-8.2)
[2018-05-08 16:09] LABS: APPEARANCE,URINE CLOUDY (CLEAR); BILIRUBIN,URINE NEGATIVE (NEGATIVE); GLUCOSE, URINE (UA) NEGATIVE (NEGATIVE); KETONES,URINE NEGATIVE (NEGATIVE); LEUKOCYTE ESTERASE ,URINE NEGATIVE (NEGATIVE); NITRATE,URINE NEGATIVE (NEGATIVE); OCCULT BLOOD,URINE TRACE (NEGATIVE); PH,URINE 5.5 (5.0-8.0); PROTEIN,URINE TRACE (NEGATIVE); UROBILINOGEN,URINE 0.2 mg/dL (<=1.0)
[2018-05-08 16:15] LABS: AMPHET/METH SCREEN,URINE NEGATIVE (NEGATIVE); BARBITURATE SCREEN, URINE NEGATIVE (NEGATIVE); BENZODIAZEPINES SCREEN,URINE NEGATIVE (NEGATIVE); CANNABINOID SCREEN,URINE POSITIVE (NEGATIVE); COCAINE SCREEN,URINE NEGATIVE (NEGATIVE); METHADONE SCREEN, URINE NEGATIVE (NEGATIVE); OPIATE SCREEN,URINE NEGATIVE (NEGATIVE); PHENCYCLIDINE SCREEN,URINE NEGATIVE (NEGATIVE)
[2018-05-08 16:45] LABS: BACTERIA,URINE Few /HPF (None Seen); RBC,URINE 0-2 /HPF (0-2); SQUAMOUS EPITHELIAL CELL,UR Moderate /LPF (None Seen); WBC,URINE None Seen /HPF (0-5)
[2018-05-08] MEDS ORDERED: LORazepam 2 MG TABLET PO ONE (17:45)
[2018-05-08 18:02] VITALS: BP 135/72
== END 2018-05-08 18:06 | disposition home or self-care (01) ==
LOC: EMS 12:42
DX: S70.311A Abrasion, right thigh, initial encounter (principal); F32.9 Major depressive disorder, single episode, unspecified; E78.00 Pure hypercholesterolemia, unspecified; I10 Essential (primary) hypertension; E66.01 Morbid (severe) obesity due to excess calories; Z88.4 Allergy status to anesthetic agent; Z88.8 Allergy status to other drugs, medicaments and biological substances; Z90.49 Acquired absence of other specified parts of digestive tract; X58.XXXA Exposure to other specified factors, initial encounter; Y93.89 Activity, other specified; Y92.89 Other specified places as the place of occurrence of the external cause; Y99.8 Other external cause status
CPT/HCPCS: 36415; 80053; 80307; 81001; 85025; 99284; G0480